=== PATIENT | female | born 1995 | race Caucasian/White ===

== ENCOUNTER 2021-05-26 12:28 | Inpatient (IN) | payer OTHER ==
[2021-05-26] MEDS ORDERED: IPRATROPIUM-ALBUTEROL 3 ML NEB INHALATION STA ×2 (12:40→13:03)
[2021-05-26] MEDS ORDERED: MAGNESIUM SULFATE-D5W PMX 2 GM in DEXTROSE/WATER 1 100ML.BAG IVPB STA (12:40)
[2021-05-26] MEDS ORDERED: methylPREDNISolone SOD SUCCI 125 MG/2 ML VIAL IV STA ×2 (12:40→15:51)
[2021-05-26] MEDS ORDERED: SODIUM CHLORIDE 0.9% 1,000 ML IV ONE (12:57)
[2021-05-26 12:58] LABS: Basophils # (A) 0.1 k/uL (0-0.2); Basophils % (A) 0 %; Eosinophils # (A) 0.7 k/uL (0-0.7); Eosinophils % (A) 5 %; HCT 46.4 % (34.0-46.0); HGB 15.3 gm/dL (11.4-16.0); Lymphocytes # (A) 1.7 k/uL (1.0-4.8); Lymphocytes % (A) 11 %; MCH 29.7 pg (25.0-35.0); Mean Platelet Volume 7.4; Monocytes # (A) 0.7 k/uL (0-1.0); Monocytes % (A) 5 %; Neutrophils # (A) 11.3 k/uL (1.3-7.7); Neutrophils % (A) 77 %; Platelet Count 232 k/uL (150-450); RBC 5.15 m/uL (3.80-5.40); RDW 14.1 % (11.5-15.5); WBC 14.6 k/uL (3.8-10.6)
[2021-05-26 13:08] LABS: ALT 11 U/L (4-34); AST 28 U/L (14-36); African American GFR (CKD) >90 (>60 ml/min/1.73 sqM); Albumin 4.7 g/dL (3.5-5.0); Alkaline Phosphatase 132 U/L (38-126); Anion Gap 12 mmol/L; Blood Urea Nitrogen 8 mg/dL (7-17); Calcium 9.4 mg/dL (8.4-10.2); Carbon Dioxide 22 mmol/L (22-30); Chloride 107 mmol/L (98-107); Glucose 107 mg/dL (74-99); Non-African American GFR(CKD) >90 (>60 ml/min/1.73 sqM); Sodium 141 mmol/L (137-145); Total Bilirubin 1.2 mg/dL (0.2-1.3); Total Protein 8.1 g/dL (6.3-8.2)
[2021-05-26 13:22] LABS: INR 1.1 (<1.2); Partial Thromboplastin Time 23.8 sec (22.0-30.0); Prothrombin Time 11.2 sec (9.0-12.0)
[2021-05-26] MEDS: LORazepam 2 MG/ML INJ IV STA ×2 (13:44→13:59)
--- NOTE | 2021-05-26 14:16 | XR ---
EXAMINATION TYPE: XR chest 1V portable DATE OF EXAM: 05/26/2021 COMPARISON: NONE HISTORY: dyspnea TECHNIQUE: Single frontal view of the chest is obtained. FINDINGS: There is no focal air space opacity, pleural effusion, or pneumothorax seen. The cardiac silhouette size is within normal limits. The osseous structures are intact. IMPRESSION: No acute process.
[2021-05-26 14:19] LABS: ABG Base Excess -3.8 mmol/L; ABG HCO3 21 mmol/L (21-25); ABG PCO2 34 mmHg (35-45); ABG PO2 85 mmHg (83-108); ABG TCO2 22 mmol/L (19-24); Allen Test Performed? Yes
[2021-05-26] MEDS: IPRATROPIUM-ALBUTEROL 3 ML NEB INHALATION SCH ×4 (14:43→23:48)
[2021-05-26] MEDS ORDERED: methylPREDNISolone SOD SUCCI 40 MG/ML 1 ML VIAL IV STA ×4 (15:04→15:18)
[2021-05-26] MEDS ORDERED: BUDESONIDE 1 MG/2 ML NEBU INHALATION STA (15:14)
[2021-05-26] MEDS ORDERED: FORMOTEROL FUMARATE 20 MCG/2 ML NEBU INHALATION ONE (15:19)
[2021-05-26] MEDS ORDERED: FORMOTEROL FUMARATE 20 MCG/2 ML NEBU INHALATION STA (15:20)
[2021-05-26] MEDS ORDERED: MONTELUKAST 10 MG TAB PO STA (15:50)
--- NOTE | 2021-05-26 16:50 | ED ---
General Adult HPI - General Chief complaint: Shortness of Breath Stated complaint: JADE Time Seen by Provider: 05/26/21 12:35 Source: patient, EMS, RN notes reviewed, old records reviewed Mode of arrival: EMS Limitations: no limitations - History of Present Illness Initial comments: Patient is a 26-year-old female with past medical history remarkable for asthma who presents emergency Department complaining of a one-day history of worsening shortness of breath. Patient states that she was seen recently at an outside hospital for a similar complaint. She was exposed to black mold in the believe that may have caused her asthma exacerbation. She is uncertain what caused her current asthma exacerbation. She endorses a bilateral chest tightness. She denies any history of blood clots in herself or family members. She denies any productive cough but does endorse a dry cough. She denies sore throat, fevers, chills. She denies any sick contacts. She is no abdominal complaints, including no nausea, vomiting. She attempted to use her home breathing treatments without much success. She is brought in today for difficulty in breathing. - Related Data Home Medications Medication Instructions Recorded Confirmed Budesonide/Formoterol Fumarate 2 puff INHALATION RT-BID 05/26/21 05/26/21 [Symbicort 160-4.5 Mcg Inhaler] Cetirizine HCl 10 mg PO DAILY 05/26/21 05/26/21 Montelukast [Singulair] 10 mg PO DAILY 05/26/21 05/26/21 Tiotropium [place] [Spiriva 2 puff INHALATION RT-BID 05/26/21 05/26/21 Respimat] Allergies Allergy/AdvReac Type Severity Reaction Status Date / Time Penicillins Allergy Swelling Verified 05/26/21 13:52 Review of Systems ROS Statement: Those systems with pertinent positive or pertinent negative responses have been documented in the HPI. Review of Systems: CONST: Denies fever EYES: Denies blurry vision ENT: Denies nasal congestion C/V: Denies Chest pain RESP: Endorses shortness of breath GI: Endorses chest pain : Denies dysuria SKIN: Denies rash. MSK: Denies joint pain. NEURO: Denies headache ROS Other: All systems not noted in ROS Statement are negative. Past Medical History Past Medical History: Asthma History of Any Multi-Drug Resistant Organisms: None Reported Past Surgical History: No Surgical Hx Reported Past Psychological History: No Psychological Hx Reported Smoking Status: Former smoker Past Alcohol Use History: None Reported Past Drug Use History: None Reported General Exam - General Exam Comments Initial Comments: General: Appears tachypneic In respiratory distress. HEAD: Normal with no signs of head trauma. EYES: PERRLA, EOMI, conjunctiva normal, no discharge. ENT: Hearing grossly intact, normal oropharynx. RESPIRATORY: Reduced breath sounds bilaterally with end expiratory wheezing. No obvious rhonchi patient. Patient is tachypneic with subcostal retractions. C/V: Patient's tachycardic with a regular rhythm. S1 and S2 auscultated. No peripheral edema. Peripheral pulses are equal throughout. ABD: Abd is soft, nontender, nondistended EXT: Normal range of motion, no obvious deformity SKIN: No rashes or lesions observed on exposed skin. NEURO: Alert and oriented 4. Limitations: no limitations Course Vital Signs 05/26/21 05/26/21 05/26/21 12:29 12:46 12:54 Temperature 100.5 F H Pulse Rate 140 H 121 H 124 H Respiratory 30 H Rate Blood Pressure 147/87 O2 Sat by Pulse 89 L Oximetry 05/26/21 05/26/21 05/26/21 13:22 13:32 13:35 Temperature Pulse Rate 115 H Respiratory 22 32 H Rate Blood Pressure 142/65 O2 Sat by Pulse 88 L 95 Oximetry 05/26/21 05/26/21 05/26/21 13:37 13:50 13:55 Temperature Pulse Rate 114 H 128 H 128 H Respiratory 53 H Rate Blood Pressure 141/93 O2 Sat by Pulse 97 Oximetry 05/26/21 05/26/21 05/26/21 14:05 14:21 14:34 Temperature Pulse Rate 123 H 122 H 114 H Respiratory 50 H 61 H 45 H Rate Blood Pressure 151/89 161/97 139/96 O2 Sat by Pulse 95 96 95 Oximetry 05/26/21 05/26/21 05/26/21 14:45 14:59 15:00 Temperature Pulse Rate 118 H 126 H Respiratory Rate Blood Pressure O2 Sat by Pulse 91 L Oximetry 05/26/21 05/26/21 05/26/21 15:01 15:10 15:28 Temperature Pulse Rate 129 H 129 H 123 H Respiratory 46 H 45 H Rate Blood Pressure 144/84 O2 Sat by Pulse 90 L 94 L Oximetry 05/26/21 05/26/21 05/26/21 15:39 15:41 15:51 Temperature 98.5 F Pulse Rate 122 H 122 H Respiratory Rate Blood Pressure O2 Sat by Pulse Oximetry 05/26/21 16:53 Temperature 98.9 F Pulse Rate 122 H Respiratory 40 H Rate Blood Pressure 144/86 O2 Sat by Pulse 96 Oximetry Medical Decision Making - Medical Decision Making Based on the patient's presentation and physical exam, I'm concerned for acute asthma exacerbation but cannot rule out cardiac with possibility of pulmonary embolus minutes time either. She does not PERC out, well score for pulmonary embolism is low. Therefore we will obtain a cardiac workup including troponin, d-dimer, EKG, chest x-ray. Patient will be administered a total bili of 40 mg of IV Solu-Medrol in addition to multiple breathing treatments and 2 g magnesium for asthma exacerbation. Patient was initially closely monitored, and then switched to BiPAP as she became more tachypneic. She was in agreement this plan. Patiently connected to continuous cardiac monitoring while she is in the department. She also be connected to continuous pulse oximetry. EKG was significant for sinus tachycardia. Chest x-ray showed no signs of acute infectious process. There is no acute cardiopulmonary process on chest x-ray. Laboratory studies are remarkable for mildly elevated leukocytosis of 14.6 which is likely reactive. Patient's troponin is negative. Patient's d-dimer is within normal limits. COVID-19 swab is negative. On reevaluation, patient is on BiPAP. I will obtain an ABG at this time. ABG was remarkable for showing a normal pH with a mildly decreased CO2 with hypoxia with PaO2 of 85. This does fit her asthma. She is not retaining CO2 at this time. Patient became uncomfortable on BiPAP and therefore was switched hyponasal cannula after discussion with pulmonology. I consulted pulmonology, Dr. agudelo, who agreed to evaluate the patient. I spoke with the patient regarding her admission and she was in agreement this plan. Patient will be admitted in serious condition on hyponasal cannula for asthma exacerbation. Breath sounds are improved bilaterally and patient has louder wheezing with breath sounds in all lung gonzalez. This is an improvement from her initial exam. Vital signs are also improved at this time. This includes improvement in her tachycardia. I spoke with the attending physician, Dr. Stewart of [facility] who was in agreement with the plan and accepted the admission. - Lab Data Result diagrams: 05/26/21 12:43 05/26/21 12:43 Lab Results 05/26/21 05/26/21 05/26/21 Range/Units 12:43 12:43 12:43 WBC 14.6 H (3.8-10.6) k/uL RBC 5.15 (3.80-5.40) m/uL Hgb 15.3 (11.4-16.0) gm/dL Hct 46.4 H (34.0-46.0) % MCV 90.0 (80.0-100.0) fL MCH 29.7 (25.0-35.0) pg MCHC 33.0 (31.0-37.0) g/dL RDW 14.1 (11.5-15.5) % Plt Count 232 (150-450) k/uL MPV 7.4 Neutrophils % 77 % Lymphocytes % 11 % Monocytes % 5 % Eosinophils % 5 % Basophils % 0 % Neutrophils # 11.3 H (1.3-7.7) k/uL Lymphocytes # 1.7 (1.0-4.8) k/uL Monocytes # 0.7 (0-1.0) k/uL Eosinophils # 0.7 (0-0.7) k/uL Basophils # 0.1 (0-0.2) k/uL PT 11.2 (9.0-12.0) sec INR 1.1 (<1.2) APTT 23.8 (22.0-30.0) sec D-Dimer 0.39 (<0.60) mg/L FEU Sample Site ABG pH (7.35-7.45) ABG pCO2 (35-45) mmHg ABG pO2 (83-108) mmHg ABG HCO3 (21-25) mmol/L ABG Total CO2 (19-24) mmol/L ABG O2 Saturation (94-97) % ABG Base Excess mmol/L Mahesh Test FiO2 % Sodium 141 (137-145) mmol/L Potassium 4.0 (3.5-5.1) mmol/L Chloride 107 (98-107) mmol/L Carbon Dioxide 22 (22-30) mmol/L Anion Gap 12 mmol/L BUN 8 (7-17) mg/dL Creatinine 0.67 (0.52-1.04) mg/dL Est GFR (CKD-EPI)AfAm >90 (>60 ml/min/1.73 sqM) Est GFR (CKD-EPI)NonAf >90 (>60 ml/min/1.73 sqM) Glucose 107 H (74-99) mg/dL Plasma Lactic Acid Nando (0.7-2.0) mmol/L Calcium 9.4 (8.4-10.2) mg/dL Magnesium 2.0 (1.6-2.3) mg/dL Total Bilirubin 1.2 (0.2-1.3) mg/dL AST 28 (14-36) U/L ALT 11 (4-34) U/L Alkaline Phosphatase 132 H (38-126) U/L Troponin I (0.000-0.034) ng/mL Total Protein 8.1 (6.3-8.2) g/dL Albumin 4.7 (3.5-5.0) g/dL HCG, Qual Coronavirus (PCR) (Not Detectd) 05/26/21 05/26/21 05/26/21 Range/Units 12:43 12:43 12:44 WBC (3.8-10.6) k/uL RBC (3.80-5.40) m/uL Hgb (11.4-16.0) gm/dL Hct (34.0-46.0) % MCV (80.0-100.0) fL MCH (25.0-35.0) pg MCHC (31.0-37.0) g/dL RDW (11.5-15.5) % Plt Count (150-450) k/uL MPV Neutrophils % % Lymphocytes % % Monocytes % % Eosinophils % % Basophils % % Neutrophils # (1.3-7.7) k/uL Lymphocytes # (1.0-4.8) k/uL Monocytes # (0-1.0) k/uL Eosinophils # (0-0.7) k/uL Basophils # (0-0.2) k/uL PT (9.0-12.0) sec INR (<1.2) APTT (22.0-30.0) sec D-Dimer (<0.60) mg/L FEU Sample Site ABG pH (7.35-7.45) ABG pCO2 (35-45) mmHg ABG pO2 (83-108) mmHg ABG HCO3 (21-25) mmol/L ABG Total CO2 (19-24) mmol/L ABG O2 Saturation (94-97) % ABG Base Excess mmol/L Mahesh Test FiO2 % Sodium (137-145) mmol/L Potassium (3.5-5.1) mmol/L Chloride (98-107) mmol/L Carbon Dioxide (22-30) mmol/L Anion Gap mmol/L BUN (7-17) mg/dL Creatinine (0.52-1.04) mg/dL Est GFR (CKD-EPI)AfAm (>60 ml/min/1.73 sqM) Est GFR (CKD-EPI)NonAf (>60 ml/min/1.73 sqM) Glucose (74-99) mg/dL Plasma Lactic Acid Nando 1.3 (0.7-2.0) mmol/L Calcium (8.4-10.2) mg/dL Magnesium (1.6-2.3) mg/dL Total Bilirubin (0.2-1.3) mg/dL AST (14-36) U/L ALT (4-34) U/L Alkaline Phosphatase (38-126) U/L Troponin I <0.012 (0.000-0.034) ng/mL Total Protein (6.3-8.2) g/dL Albumin (3.5-5.0) g/dL HCG, Qual Not Detected Coronavirus (PCR) (Not Detectd) 05/26/21 05/26/21 Range/Units 13:19 14:17 WBC (3.8-10.6) k/uL RBC (3.80-5.40) m/uL Hgb (11.4-16.0) gm/dL Hct (34.0-46.0) % MCV (80.0-100.0) fL MCH (25.0-35.0) pg MCHC (31.0-37.0) g/dL RDW (11.5-15.5) % Plt Count (150-450) k/uL MPV Neutrophils % % Lymphocytes % % Monocytes % % Eosinophils % % Basophils % % Neutrophils # (1.3-7.7) k/uL Lymphocytes # (1.0-4.8) k/uL Monocytes # (0-1.0) k/uL Eosinophils # (0-0.7) k/uL Basophils # (0-0.2) k/uL PT (9.0-12.0) sec INR (<1.2) APTT (22.0-30.0) sec D-Dimer (<0.60) mg/L FEU Sample Site rbrac ABG pH 7.40 (7.35-7.45) ABG pCO2 34 L (35-45) mmHg ABG pO2 85 (83-108) mmHg ABG HCO3 21 (21-25) mmol/L ABG Total CO2 22 (19-24) mmol/L ABG O2 Saturation 97.0 (94-97) % ABG Base Excess -3.8 mmol/L Mahesh Test Yes FiO2 50 % Sodium (137-145) mmol/L Potassium (3.5-5.1) mmol/L Chloride (98-107) mmol/L Carbon Dioxide (22-30) mmol/L Anion Gap mmol/L BUN (7-17) mg/dL Creatinine (0.52-1.04) mg/dL Est GFR (CKD-EPI)AfAm (>60 ml/min/1.73 sqM) Est GFR (CKD-EPI)NonAf (>60 ml/min/1.73 sqM) Glucose (74-99) mg/dL Plasma Lactic Acid Nando (0.7-2.0) mmol/L Calcium (8.4-10.2) mg/dL Magnesium (1.6-2.3) mg/dL Total Bilirubin (0.2-1.3) mg/dL AST (14-36) U/L ALT (4-34) U/L Alkaline Phosphatase (38-126) U/L Troponin I (0.000-0.034) ng/mL Total Protein (6.3-8.2) g/dL Albumin (3.5-5.0) g/dL HCG, Qual Coronavirus (PCR) Not Detected (Not Detectd) - EKG Data -: EKG Interpreted by Me EKG Comments: 12-lead Electrocardiogram Interpretation Note EKG was reviewed and interpreted by myself. 12-lead ECG performed at 1332 is interpreted by me as revealing sinus tachycardia at a rate of 116 beats per minute. [place] is normal. TN intervals 152 ms, QRS duration is 90 ms, QTc is 450 ms.. There is an isolated T-wave inversion in lead III.. R wave progression across the precordium was satisfactory. By my interpretation this EKG is non- diagnostic for acute ischemia. Disposition Clinical Impression: Sinus tachycardia, Asthma exacerbation Narrative: hypoxic respiratory failure requiring supplemental oxygenation. Blood gas interpretation. Disposition: ADMITTED IP TO THIS HOSP Condition: Serious Referrals: None,Stated [Primary Care Provider] - 1-2 days
--- NOTE | 2021-05-26 18:46 | CONS ---
CONSULTATION PULMONARY/CRITICAL CARE CONSULTATION: This patient was seen in the emergency room, room #4. REASON FOR CONSULTATION: Severe asthma. This is a 26-year-old female with a history of chronic bronchial asthma. She has had asthma for a number of years. She does not actually see a lung doctor. She does not know the name of her primary care physician. Anyway, she came into the emergency room complaining of shortness of breath, chest tightness, wheezing and cough. She has typical asthma symptoms. It has been going on for a couple of days. She believes the weather change maybe caused her asthma to be more active. Anyway, she was seen in the emergency room. I was called by the ER physician, Dr. Llanos. The patient is currently on 15 L high flow nasal cannula. She is not receiving any IV fluids. She has currently received some updrafts with DuoNeb, she received some IV magnesium, and also she received 40 mg of Solu-Medrol and after that another 40 mg of Solu-Medrol. Her chest x-ray shows no acute process. She denies any other major medical problems. She has allergies to penicillin. Her home medications apparently include Symbicort, Zyrtec, Singulair and Spiriva. I suspect she probably has a rescue inhaler as well. Again, she was not a particularly good historian. Not remembering her medications or her doctor's name. Current labs include a white count 14.6, hemoglobin 15.3, hematocrit 46.4, and a platelet count of 332,000. PT/INR, PTT and D-dimer all normal. A blood gas showed a pO2 of 85, pCO2 of 34, and pH of 7.4. That was on 50%. Sodium, potassium, chloride and CO2 all normal. Anion gap normal. BUN and creatinine were normal. The rest of her labs look okay. Coronavirus testing was negative. HCG was negative. REVIEW OF SYSTEMS: CONSTITUTIONAL: Negative. NEUROLOGIC: Negative. HEENT: Negative. CARDIOVASCULAR: Negative. PULMONARY: Shortness of breath, chest tightness, wheezing cough for about 3 or 4 days. GI: Negative. : Negative. RHEUMATOLOGIC: Negative. IMMUNOLOGIC: Negative. ENDOCRINOLOGIC: Negative. DERMATOLOGIC: Negative. PHYSICAL EXAMINATION: Vital signs are reviewed. Temperature is 98.5, heart rate about 120, respiratory rate is in the high 20s to low 30s, and saturations on the 15 L high flow cannula is 94-95%. She appears to be in [id number] respiratory distress. No audible wheezing. No conversational dyspnea. No use of accessory muscles. HEENT examination is grossly unremarkable. NECK: Supple, full range of motion. No adenopathy. Neck veins are flat. CARDIOVASCULAR: Examination reveals tachycardia. Heart rate about 120 beats per minute. S1, S2 normal. LUNGS: Some expiratory wheezes. There is prolongation on forced maneuver. No crackles. Breath sounds are equal bilaterally. Adventitious lung sounds are more prominent on forced maneuver. ABDOMEN: Obese but bowel sounds are heard. EXTREMITIES are intact. No cyanosis, clubbing, or edema. SKIN: Without rash. NEUROLOGIC examination is brief but nonfocal. Laboratory data has been reviewed. Chest x-ray shows no acute process. MEDICATIONS: Currently have included updrafts with albuterol and Atrovent, we did recommend an updraft with formoterol 20 mcg and Pulmicort 1 mg to be administered twice a day and she has received a total of 80 mg of Solu-Medrol with another 20 mg to be given. I n addition, the patient did receive some Ativan and some magnesium. ASSESSMENT: Severe asthma exacerbation without obvious infection. PLAN: The patient will be placed on DuoNeb q.i.d. and p.r.n. In addition, we will give her Solu-Medrol 60 mg q.6 hours. We also will add Singulair 10 mg at bedtime and also Pulmicort and formoterol twice a day. I do not believe there is a need for antibiotic at this time. Additional recommendations and suggestions are forthcoming. Prognosis is guarded. We will continue to follow and make recommendations where appropriate. MMODL / IJN: [id number] /
[2021-05-26] MEDS ORDERED: ACETAMINOPHEN TAB 325 MG TAB PO PRN (19:53)
[2021-05-26] MEDS: FORMOTEROL FUMARATE 20 MCG/2 ML NEBU INHALATION SCH (20:24)
[2021-05-26] MEDS: BUDESONIDE 1 MG/2 ML NEBU INHALATION SCH (20:24)
[2021-05-26] MEDS: MELATONIN 3 MG TABLET PO SCH (21:52)
[2021-05-27] MEDS: IPRATROPIUM-ALBUTEROL 3 ML NEB INHALATION SCH ×5 (03:52→22:16)
[2021-05-27] MEDS: BUDESONIDE 1 MG/2 ML NEBU INHALATION SCH ×2 (08:34→16:21)
[2021-05-27] MEDS: FORMOTEROL FUMARATE 20 MCG/2 ML NEBU INHALATION SCH ×2 (08:34→16:21)
[2021-05-27] MEDS: methylPREDNISolone SOD SUCCI 40 MG/ML 1 ML VIAL IV SCH ×2 (11:02→11:12)
[2021-05-27] MEDS: DOXYCYCLINE 100 MG CAP PO SCH ×2 (11:03→20:27)
[2021-05-27] MEDS: NYSTATIN 100,000 UNIT/ML SUSP 500,000 UNIT/5 ML CUP PO SCH ×3 (11:13→20:27)
[2021-05-27] MEDS: methylPREDNISolone SOD SUCCI 125 MG/2 ML VIAL IV SCH ×2 (11:13→17:05)
--- NOTE | 2021-05-27 11:45 | P.HPIM ---
History of Present Illness 26-year-old female came in with compensative worsening shortness of breath or found to be in asthma exacerbation. Patient does have history of asthma patient was admitted about a month ago for 5 days and was told she has black mold in the lungs with. Patient was complaining of cough with greenish sputum production. Patient was also comparing of bilateral chest tightness. Patient denied nausea vomiting denied any fever chills chest x-ray did not show any pneumonia. Denied any smoking history. Patient doesn't have any peripheral eosinophilia. She was requiring 15 L of oxygen presently on 8 L of oxygen. REVIEW OF SYSTEMS: CONSTITUTIONAL: No fever, no malaise, no fatigue. HEENT: No recent visual problems or hearing problems. Denied any sore throat. CARDIOVASCULAR: No chest pain, orthopnea, PND, no palpitations, no syncope. PULMONARY: As mentioned in HPI. GASTROINTESTINAL: No diarrhea, no nausea, no vomiting, no abdominal pain. NEUROLOGICAL: No headaches, no weakness, no numbness. HEMATOLOGICAL: Denies any bleeding or petechiae. GENITOURINARY: Denies any burning micturition, frequency, or urgency. MUSCULOSKELETAL/RHEUMATOLOGICAL: Denies any joint pain, swelling, or any muscle pain. ENDOCRINE: Denies any polyuria or polydipsia. The rest of the 14-point review of systems is negative. PHYSICAL EXAMINATION: GENERAL: The patient is alert and oriented x3, not in any acute distress. Well developed, well nourished. HEENT: Pupils are round and equally reacting to light. EOMI. No scleral icterus. No conjunctival pallor. Normocephalic, atraumatic. No pharyngeal erythema. No thyromegaly. CARDIOVASCULAR: S1 and S2 present. No murmurs, rubs, or gallops. PULMONARY: Significant expiratory wheezing on exam decreased air entry into bilateral lung goznalez. ABDOMEN: Soft, nontender, nondistended, normoactive bowel sounds. No palpable organomegaly. MUSCULOSKELETAL: No joint swelling or deformity. EXTREMITIES: No cyanosis, clubbing, or pedal edema. NEUROLOGICAL: Gross neurological examination did not reveal any focal deficits. SKIN: No rashes. Assessment and plan 1 acute asthma exacerbation patient appears to have severe persistent asthma. Patient will be continue on systemic steroids and inhalational treatments. Usually asthmatic will not require any antibiotics but the patient is comparing of the greenish sputum production consistent with bacterial bronchitis because of which patient will be started on doxycycline. -Acute hypoxic respiratory failure due to assessment #1 -leukocytosis secondary to systemic steroids DVT prophylaxis: Lovenox Past Medical History Past Medical History: Asthma History of Any Multi-Drug Resistant Organisms: None Reported Past Surgical History: No Surgical Hx Reported Past Psychological History: Depression Smoking Status: Never smoker Past Alcohol Use History: None Reported Past Drug Use History: None Reported - Past Family History Father Family Medical History: Asthma, Myocardial Infarction (CT) Mother Additional Family Medical History / Comment(s): depression Medications and Allergies Home Medications Medication Instructions Recorded Confirmed Type Budesonide/Formoterol Fumarate 2 puff INHALATION RT-BID 05/26/21 05/26/21 History [Symbicort 160-4.5 Mcg Inhaler] Cetirizine HCl 10 mg PO DAILY 05/26/21 05/26/21 History Montelukast [Singulair] 10 mg PO DAILY 05/26/21 05/26/21 History Tiotropium [place] [Spiriva 2 puff INHALATION RT-BID 05/26/21 05/26/21 History Respimat] Allergies Allergy/AdvReac Type Severity Reaction Status Date / Time Penicillins Allergy Swelling Verified 05/26/21 13:52 Physical Exam Vitals: Vital Signs Temp Pulse Pulse Resp BP BP Pulse Ox 05/27/21 09:08 108 H 05/27/21 08:56 110 H 05/27/21 08:55 110 H 05/27/21 08:38 106 H 92 L 05/27/21 08:11 98.4 F 102 H 18 155/79 05/27/21 04:02 120 H 05/27/21 03:53 113 H 05/27/21 00:43 98.1 F 108 H 19 111/73 91 L 05/27/21 00:02 117 H 05/26/21 23:50 101 H 05/26/21 20:49 120 H 05/26/21 20:34 120 H 05/26/21 20:24 120 H 05/26/21 18:51 98.5 F 120 H 21 118/75 94 L 05/26/21 16:53 98.9 F 122 H 40 H 144/86 96 05/26/21 15:51 122 H 05/26/21 15:41 98.5 F 05/26/21 15:39 122 H 05/26/21 15:28 123 H 05/26/21 15:10 129 H 45 H 94 L 05/26/21 15:01 129 H 46 H 144/84 90 L 05/26/21 15:00 91 L 05/26/21 14:59 126 H 05/26/21 14:45 118 H 05/26/21 14:34 114 H 45 H 139/96 95 05/26/21 14:21 122 H 61 H 161/97 96 05/26/21 14:05 123 H 50 H 151/89 95 05/26/21 13:55 128 H 53 H 141/93 97 05/26/21 13:50 128 H 05/26/21 13:37 114 H 05/26/21 13:35 115 H 32 H 142/65 95 05/26/21 13:32 88 L 05/26/21 13:22 22 05/26/21 12:54 124 H 05/26/21 12:46 121 H 05/26/21 12:29 100.5 F H 140 H 30 H 147/87 89 L Intake and Output 05/26/21 05/27/21 05/27/21 22:59 06:59 14:59 Other: Voiding Method Bedside Commode # Voids 1 3 # Bowel Movements 1 Weight 99.79 kg Results CBC & Chem 7: 05/26/21 12:43 05/26/21 12:43 Labs: Abnormal Lab Results - Last 24 Hours (Table) 05/26/21 05/26/21 05/26/21 Range/Units 12:43 12:43 14:17 WBC 14.6 H (3.8-10.6) k/uL Hct 46.4 H (34.0-46.0) % Neutrophils # 11.3 H (1.3-7.7) k/uL ABG pCO2 34 L (35-45) mmHg Glucose 107 H (74-99) mg/dL Alkaline Phosphatase 132 H (38-126) U/L Thrombosis Risk Factor Assmnt - Choose All That Apply Any of the Below Risk Factors Present?: Yes Each Factor Represents 1 point: Obesity (BMI >25) Other Risk Factors: No Other congenital or acquired thrombophilia - If yes, enter type in comment: No Thrombosis Risk Factor Assessment Total Risk Factor Score: 1 Thrombosis Risk Factor Assessment Level: Low Risk
--- NOTE | 2021-05-27 12:56 | P.PN ---
Subjective Progress Note Date: 05/27/21 Principal diagnosis: Asthma exacerbation. Progress note dated 05/27/2021. 26-year-old female, with a history of chronic bronchial asthma. We saw her in the emergency room yesterday. Her asthma was quite severe yesterday but she's doing much better today. She feels much better. She's less bronchospastic and short of breath. Her cough is better control. She still wheezing. She was placed on all the usual medications. Currently, she is on a couple liters. Her saturations are excellent. Her heart rate is about 100 bpm. Her chest x-ray was normal. There are no new labs for today. Blood gases yesterday showed a pO2 of 85, pCO2 34, and a pH is 7.4. Objective - Vital Signs Vital signs: Vital Signs Temp 98.4 F 05/27/21 08:11 Pulse 110 H 05/27/21 12:24 Resp 18 05/27/21 08:11 BP 155/79 05/27/21 08:11 Pulse Ox 92 L 05/27/21 08:38 Intake & Output 05/26/21 05/27/21 05/27/21 18:59 06:59 18:59 Weight 99.79 kg Other: Voiding Method Bedside Commode # Voids 1 3 # Bowel Movements 1 - Exam No acute distress, oriented 3. No audible wheezing, use of accessory muscles, or conversational dyspnea. The patient appears much more stable than yesterday. HEENT examination is grossly unremarkable. Neck supple. Full range of motion. No adenopathy thyromegaly or neck vein distention. Cardiovascular examination reveals regular rhythm rate. S1-S2 normal. No S3 or S4. No discernible murmur noted. Heart sounds are distant. Heart rate 100 bpm. Lungs reveal mild expiratory wheezes. Breath sounds equal bilaterally. No rhonchi. No crackles. There is prolongation on forced maneuver. Exam today is much improved compared to yesterday. Abdomen soft bowel sounds are heard. No masses or tenderness. Extremities are intact. No cyanosis clubbing or edema. Skin is without rash or lesion. Neurologic examination is brief but nonfocal. - Labs CBC & Chem 7: 05/26/21 12:43 05/26/21 12:43 Labs: Abnormal Lab Results - Last 24 Hours (Table) 05/26/21 05/26/2121 Range/Units 12:43 12:43 14:17 WBC 14.6 H (3.8-10.6) k/uL Hct 46.4 H (34.0-46.0) % Neutrophils # 11.3 H (1.3-7.7) k/uL ABG pCO2 34 L (35-45) mmHg Glucose 107 H (74-99) mg/dL Alkaline Phosphatase 132 H (38-126) U/L Assessment and Plan Assessment: Severe asthma exacerbation, without obvious infection. Plan: Plan dated 05/27/2021. The patient will continue on all the usual medications including albuterol sulfate, ipratropium bromide, Pulmicort 1 mg, formoterol 20 g, Solu-Medrol 60 mg every 6 hours, and Singulair 10 mg at bedtime. Additional recommendations and suggestions are forthcoming. Prognosis is guarded. We will continue to follow the patient and make recommendations were appropriate. Time with Patient: Less than 30
[2021-05-27] MEDS: MELATONIN 3 MG TABLET PO SCH (20:27)
[2021-05-28] MEDS: methylPREDNISolone SOD SUCCI 125 MG/2 ML VIAL IV SCH ×5 (00:57→23:24)
[2021-05-28] MEDS: NYSTATIN 100,000 UNIT/ML SUSP 500,000 UNIT/5 ML CUP PO SCH ×4 (07:31→20:10)
[2021-05-28] MEDS: DOXYCYCLINE 100 MG CAP PO SCH ×2 (07:31→20:10)
[2021-05-28] MEDS: ENOXAPARIN 40 MG/0.4 ML SYRINGE SQ SCH (07:31)
[2021-05-28] MEDS: FORMOTEROL FUMARATE 20 MCG/2 ML NEBU INHALATION SCH ×2 (07:41→19:30)
[2021-05-28] MEDS: IPRATROPIUM-ALBUTEROL 3 ML NEB INHALATION SCH ×4 (07:42→19:17)
[2021-05-28] MEDS: BUDESONIDE 1 MG/2 ML NEBU INHALATION SCH ×2 (07:42→19:17)
--- NOTE | 2021-05-28 08:50 | P.PN ---
Subjective Progress Note Date: 05/28/21 26-year-old female came in with compensative worsening shortness of breath or found to be in asthma exacerbation. Patient does have history of asthma patient was admitted about a month ago for 5 days and was told she has black mold in the lungs with. Patient was complaining of cough with greenish sputum production. Patient was also comparing of bilateral chest tightness. Patient denied nausea vomiting denied any fever chills chest x-ray did not show any pneumonia. Denied any smoking history. Patient doesn't have any peripheral eosinophilia. She was requiring 15 L of oxygen presently on 8 L of oxygen. 05/28/2021 Patient seen on follow-up, she still has bilateral wheezing on exam, requiring 7 L high flow nasal cannula short of breath with exertion. Having some pleuritic chest discomfort. She is continued on IV Solu-Medrol 60 every 6 hours, antimicrobial therapy with doxycycline along with nebulized bronchodilators and Pulmicort. No fevers, hemodynamically stable. Patient had declined the Covid vaccine yesterday, she was educated on her increased risk of respiratory failure if if she was in fact to become infected, and was counseled to take the vaccine. Patient verbalized understanding and was agreeable. REVIEW OF SYSTEMS: CONSTITUTIONAL: No fever, no malaise, no fatigue. CARDIOVASCULAR: No chest pain, orthopnea, PND, no palpitations, no syncope. PULMONARY: Short of breath, wheezing GASTROINTESTINAL: No diarrhea, no nausea, no vomiting, no abdominal pain. NEUROLOGICAL: No headaches, no weakness, no numbness. GENITOURINARY: Denies any burning micturition, frequency, or urgency. The rest of the 14-point review of systems is negative. PHYSICAL EXAMINATION: GENERAL: The patient is alert and oriented x3, not in any acute distress. Well developed, well nourished. HEENT: Pupils are round and equally reacting to light. EOMI. No scleral icterus. No conjunctival pallor. Normocephalic, atraumatic. No pharyngeal erythema. No thyromegaly. CARDIOVASCULAR: S1 and S2 present. No murmurs, rubs, or gallops. PULMONARY: Bilateral expiratory wheeze to auscultation bilaterally, diminished air entry to bases. ABDOMEN: Soft, nontender, nondistended, normoactive bowel sounds. No palpable organomegaly. MUSCULOSKELETAL: No joint swelling or deformity. EXTREMITIES: No cyanosis, clubbing, or pedal edema. NEUROLOGICAL: Gross neurological examination did not reveal any focal deficits. SKIN: No rashes. Assessment and plan 1 acute asthma exacerbation patient appears to have severe persistent asthma. Patient will be continue on systemic steroids with IV Solu-Medrol 60 every 6 hours, DuoNeb's and Pulmicort. Usually asthmatic will not require any antibiotics but the patient is comparing of the greenish sputum production consistent with bacterial bronchitis because of which patient will be started on doxycycline. On 7 L nasal cannula, titrate down FiO2 as tolerates. -Possible acute tracheobronchitis -Acute hypoxic respiratory failure due to assessment #1 -leukocytosis secondary to systemic steroids DVT prophylaxis: Lovenox Objective - Vital Signs Vital signs: Vital Signs Temp 97.8 F 05/28/21 01:55 Pulse 86 05/28/21 08:03 Resp 17 05/28/21 01:55 BP 134/73 05/28/21 01:55 Pulse Ox 93 L 05/28/21 07:42 Intake & Output 05/27/21 05/28/21 05/28/21 18:59 06:59 18:59 Other: # Voids 3 3 # Bowel Movements 1 - Labs CBC & Chem 7: 05/26/21 12:43 05/26/21 12:43 Labs: Microbiology - Last 24 Hours (Table) 05/26/21 12:44 Blood Culture - Preliminary Blood No Growth after 24 hours
--- NOTE | 2021-05-28 11:33 | P.PN ---
Subjective Progress Note Date: 05/28/21 Principal diagnosis: Asthma exacerbation. Progress note dated 05/27/2021. 26-year-old female, with a history of chronic bronchial asthma. We saw her in the emergency room yesterday. Her asthma was quite severe yesterday but she's doing much better today. She feels much better. She's less bronchospastic and short of breath. Her cough is better control. She still wheezing. She was placed on all the usual medications. Currently, she is on a couple liters. Her saturations are excellent. Her heart rate is about 100 bpm. Her chest x-ray was normal. There are no new labs for today. Blood gases yesterday showed a pO2 of 85, pCO2 34, and a pH is 7.4. Progress note dated 05/28/2021. 26-year-old female with history of severe chronic bronchial asthma exacerbation. We saw her initially in the emergency department, a couple days ago. She is improved today. She is not ready for discharge. She still quite bronchospastic and short of breath. She is coughing a bit but not producing any phlegm. No fever or chills or chest pain. She was sleeping when I entered the room. No new labs or x-rays today. Objective - Vital Signs Vital signs: Vital Signs Temp 98.4 F 05/28/21 08:00 Pulse 86 05/28/21 08:03 Resp 22 05/28/21 08:00 BP 133/88 05/28/21 08:00 Pulse Ox 94 L 05/28/21 08:00 Intake & Output 05/27/21 05/28/21 05/28/21 18:59 06:59 18:59 Other: # Voids 3 3 2 # Bowel Movements 1 - Exam No acute distress, oriented 3. No audible wheezing, use of accessory muscles, or conversational dyspnea. The patient appears much more stable than yesterday. HEENT examination is grossly unremarkable. Neck supple. Full range of motion. No adenopathy thyromegaly or neck vein distention. Cardiovascular examination reveals regular rhythm rate. S1-S2 normal. No S3 or S4. No discernible murmur noted. Heart sounds are distant. Heart rate 86 bpm. Lungs reveal mild expiratory wheezes. Breath sounds equal bilaterally. No rhonchi. No crackles. There is prolongation on forced maneuver. Exam today is much improved compared to yesterday. Abdomen soft bowel sounds are heard. No masses or tenderness. Extremities are intact. No cyanosis clubbing or edema. Skin is without rash or lesion. Neurologic examination is brief but nonfocal. - Labs CBC & Chem 7: 05/26/21 12:43 05/26/21 12:43 Labs: Microbiology - Last 24 Hours (Table) 05/26/21 12:44 Blood Culture - Preliminary Blood No Growth after 24 hours Assessment and Plan Assessment: Severe asthma exacerbation, without obvious infection. Plan: Plan dated 05/27/2021. The patient will continue on all the usual medications including albuterol sulfate, ipratropium bromide, Pulmicort 1 mg, formoterol 20 g, Solu-Medrol 60 mg every 6 hours, and Singulair 10 mg at bedtime. Additional recommendations and suggestions are forthcoming. Prognosis is guarded. We will continue to follow the patient and make recommendations were appropriate. Plan dated 05/28/2021. The patient appears to be improving. She remains on Pulmicort, 1 mg, doxycycline 100 mg twice a day, and formoterol, 20 g twice a day. She also is on Robitussin-DM, doing nebs, and Solu-Medrol. I suspect, the patient will be ready for discharge in 24-48 hours. Additional recommendations and suggestions are forthcoming. Prognosis is guarded. Time with Patient: Less than 30
[2021-05-28] MEDS: guaiFENesin-DM 100-10MG/5ML 10 ML CUP PO PRN ×2 (12:16→20:10)
[2021-05-28] MEDS: MELATONIN 3 MG TABLET PO SCH (20:10)
[2021-05-29] MEDS: methylPREDNISolone SOD SUCCI 125 MG/2 ML VIAL IV SCH ×4 (05:31→23:50)
[2021-05-29] MEDS: guaiFENesin-DM 100-10MG/5ML 10 ML CUP PO PRN (05:32)
[2021-05-29] MEDS: NYSTATIN 100,000 UNIT/ML SUSP 500,000 UNIT/5 ML CUP PO SCH ×4 (07:04→21:49)
[2021-05-29] MEDS: DOXYCYCLINE 100 MG CAP PO SCH ×2 (07:04→21:49)
[2021-05-29] MEDS: ENOXAPARIN 40 MG/0.4 ML SYRINGE SQ SCH (07:05)
[2021-05-29] MEDS: FORMOTEROL FUMARATE 20 MCG/2 ML NEBU INHALATION SCH ×2 (08:06→20:52)
[2021-05-29] MEDS: BUDESONIDE 1 MG/2 ML NEBU INHALATION SCH ×2 (08:06→20:52)
[2021-05-29] MEDS: IPRATROPIUM-ALBUTEROL 3 ML NEB INHALATION SCH ×4 (08:06→20:52)
--- NOTE | 2021-05-29 12:57 | CT ---
EXAMINATION TYPE: CT chest wo con DATE OF EXAM: 05/29/2021 COMPARISON: None HISTORY: Dyspnea. History of asthma with black mold found in lungs. CT DLP: [address] of the chest was performed with lung and mediastinal window settings submitted. The la ck of contrast limits evaluation of the vascular, mediastinal and parenchymal structures including th e upper abdomen. LUNGS: Nonspecific groundglass infiltrate identified throughout both lung gonzalez. No evidence for air space consolidation. No atelectasis. No pulmonary nodule or mass is detected. No pleural effusion. No CT evidence of interstitial lung disease. MEDIASTINUM/FRANCIA: Thoracic aorta is of normal caliber with limited evaluation given lack of contrast . The heart is not enlarged. No evidence for mediastinal mass. No lymph nodes greater than 1cm. UPPER ABDOMEN: No significant abnormality is seen. OTHER: No significant other abnormality. IMPRESSION: 1. Nonspecific groundglass infiltrate identified throughout both lung gonzalez. Correlate with acute i nflammatory process.
--- NOTE | 2021-05-29 14:49 | P.PN ---
Subjective Progress Note Date: 05/29/21 26-year-old asthmatic is coming in for shortness of breath and acute asthma exacerbation. Note that at the same time the patient is hypoxemic and she was as high as 8 L about 2 by nasal cannula and she has been weaned down to 5 L. Around few weeks back, the patient was also admitted to [facility] [place] and she was seen by the plate mill mill hand there and she was told to have a black mold in her lung. Nevertheless, I'm not sure of the diagnosis and whether she was diagnosed having ABPA or not is not clear. This history further investigated. Clinically she is doing better. She is less bronchospastic and wheezy. She remains on a combination of DuoNeb nebulized treatments around the clock, she is on per formance of Pulmicort nebulized treatments twice a day. She remains on IV Solu- Medrol. She is a dose of 60 mg IV Solu Medrol every 6 hours patient remains on doxycycline. Based on all the history reported, I performed an HRCT of the chest and a chest showed hazy groundglass pulmonary infiltrates throughout the lung gonzalez bilaterally. This raises the concern for an underlying COVID-19 infection despite her negativity towards COVID-19 infection by PCR at the time of of admission. We'll check antibodies. Objective - Vital Signs Vital signs: Vital Signs Temp 98.4 F 05/29/21 13:34 Pulse 88 05/29/21 13:34 Resp 18 05/29/21 13:34 BP 134/77 05/29/21 13:34 Pulse Ox 93 L 05/29/21 13:34 Intake & Output 05/28/21 05/29/21 05/29/21 18:59 06:59 18:59 Other: Voiding Method Bedside Commode # Voids 2 3 - Exam No acute distress, oriented 3. No audible wheezing, use of accessory muscles, or conversational dyspnea. The patient appears much more stable than yesterday. HEENT examination is grossly unremarkable. Neck supple. Full range of motion. No adenopathy thyromegaly or neck vein distention. Cardiovascular examination reveals regular rhythm rate. S1-S2 normal. No S3 or S4. No discernible murmur noted. Heart sounds are distant. Heart rate 100 bpm. Lungs reveal mild expiratory wheezes. Breath sounds equal bilaterally. No rhonchi. No crackles. There is prolongation on forced maneuver. Exam today is much improved compared to yesterday. Abdomen soft bowel sounds are heard. No masses or tenderness. Extremities are intact. No cyanosis clubbing or edema. Skin is without rash or lesion. Neurologic examination is brief but nonfocal. - Labs CBC & Chem 7: 05/26/21 12:43 05/26/21 12:43 Labs: Microbiology - Last 24 Hours (Table) 05/26/21 12:44 Blood Culture - Preliminary Blood No Growth after 48 hours Assessment and Plan Plan: 1 severe persistent bronchial asthma with ongoing exacerbation 2 diffuse bilateral ground glass pulmonary infiltrates him a could be related to previous COVID-19 infection. Other possibilities could be atypical infections. Could be also related to other possibilities such as using follicular pneumonias/hypersensitivity pneumonias. ALLERGIC bronchopulmonary asper gillosis felt to be less likely.Bronchoscopy was [facility] at [facility] and to be very interesting to obtain the results of these testing and the bronchioloalveolar lavage that was done on at a time of the bronchoscopy. 3 acute hypoxic respiratory failure secondary to above currently on 5 L by nasal cannula 4 obesity with a BMI of 37.8 Plan Check total IgE level check on complement fixation Abs for Aspergillus fumigatus check COVID-19 antibodies Continue same treatment will continue to follow. Attempt to wean down the FiO2 as tolerated. Obtain if possible the results of the bronchoscopy and the lavage from [facility].
[2021-05-29] MEDS: MELATONIN 3 MG TABLET PO SCH (21:49)
[2021-05-30] MEDS: methylPREDNISolone SOD SUCCI 125 MG/2 ML VIAL IV SCH ×3 (05:44→16:33)
[2021-05-30] MEDS: FORMOTEROL FUMARATE 20 MCG/2 ML NEBU INHALATION SCH ×2 (08:26→20:09)
[2021-05-30] MEDS: IPRATROPIUM-ALBUTEROL 3 ML NEB INHALATION SCH ×4 (08:26→20:01)
[2021-05-30] MEDS: BUDESONIDE 1 MG/2 ML NEBU INHALATION SCH ×2 (08:26→20:00)
[2021-05-30] MEDS: DOXYCYCLINE 100 MG CAP PO SCH ×2 (10:48→20:58)
[2021-05-30] MEDS: NYSTATIN 100,000 UNIT/ML SUSP 500,000 UNIT/5 ML CUP PO SCH ×4 (10:48→20:58)
[2021-05-30] MEDS: ENOXAPARIN 40 MG/0.4 ML SYRINGE SQ SCH (10:48)
--- NOTE | 2021-05-30 12:08 | P.PN ---
Subjective Progress Note Date: 05/30/21 26-year-old asthmatic is coming in for shortness of breath and acute asthma exacerbation. Note that at the same time the patient is hypoxemic and she was as high as 8 L about 2 by nasal cannula and she has been weaned down to 5 L. Around few weeks back, the patient was also admitted to [facility] [place] and she was seen by the electrician supervisor there and she was told to have a black mold in her lung. Nevertheless, I'm not sure of the diagnosis and whether she was diagnosed having ABPA or not is not clear. This history further investigated. Clinically she is doing better. She is less bronchospastic and wheezy. She remains on a combination of DuoNeb nebulized treatments around the clock, she is on per formance of Pulmicort nebulized treatments twice a day. She remains on IV Solu- Medrol. She is a dose of 60 mg IV Solu Medrol every 6 hours patient remains on doxycycline. Based on all the history reported, I performed an HRCT of the chest and a chest showed hazy groundglass pulmonary infiltrates throughout the lung gonzalez bilaterally. This raises the concern for an underlying COVID-19 infection despite her negativity towards COVID-19 infection by PCR at the time of of admission. We'll check antibodies. Ablation, this young lady is related to emotional and she wants to go home. She misses her children. She is doing slightly better. She is less short of breath. She is on 2 L of oxygen by nasal cannula with pulse ox of 94%. We will also check her pulse ox on room air. She is still on bronchodilators and she is also on IV Solu-Medrol. CAT scan of the chest showed diffuse bilateral groundglass pulmonary infiltrates. The serum IgE level came back above 1700 consistent with ALLERGIC bronchial asthma. Possibility of ALLERGIC bronchopulmonary aspergillosis felt to be less likely. Objective - Vital Signs Vital signs: Vital Signs Temp 98.4 F 05/30/21 07:20 Pulse 90 05/30/21 11:46 Resp 18 05/30/21 11:46 BP 144/79 05/30/21 07:20 Pulse Ox 94 L 05/30/21 09:28 Intake & Output 05/29/21 05/30/21 05/30/21 18:59 06:59 18:59 Other: Voiding Method Bedside Commode Toilet Bedside Commode # Voids 3 2 - Exam No acute distress, oriented 3. No audible wheezing, use of accessory muscles, or conversational dyspnea. The patient appears much more stable than yesterday. HEENT examination is grossly unremarkable. Neck supple. Full range of motion. No adenopathy thyromegaly or neck vein distention. Cardiovascular examination reveals regular rhythm rate. S1-S2 normal. No S3 or S4. No discernible murmur noted. Heart sounds are distant. Heart rate 100 bpm. Lungs reveal mild expiratory wheezes. Breath sounds equal bilaterally. No rhonchi. No crackles. There is prolongation on forced maneuver. Exam today is much improved compared to yesterday. Abdomen soft bowel sounds are heard. No masses or tenderness. Extremities are intact. No cyanosis clubbing or edema. Skin is without rash or lesion. Neurologic examination is brief but nonfocal. - Labs CBC & Chem 7: 05/26/21 12:43 05/26/21 12:43 Labs: Abnormal Lab Results - Last 24 Hours (Table) 05/29/21 Range/Units 12:28 IgE 1748.00 H (0.00-114.00) IU/mL Microbiology - Last 24 Hours (Table) 05/26/21 12:44 Blood Culture - Preliminary Blood No Growth after 72 hours Assessment and Plan Plan: 1 severe persistent bronchial asthma with ongoing exacerbation improving, and the patient is suspected to have ALLERGIC asthma knowing that her serum IgE level is quite elevated above 1700. ABPA is felt to be less likely. The CAT scan of the chest is not consistent with ABPA. There is no bronchiectasis. CF fixation for Aspergillus fumigatus antibodies are still pending. The patient is feeling better for now. 2 diffuse bilateral ground glass pulmonary infiltrates him a could be related to previous COVID-19 infection. Other possibilities could be atypical infections. Could be also related to other possibilities such as using follicular pneumonias/hypersensitivity pneumonias. ALLERGIC bronchopulmonary aspergillosis felt to be less likely.Bronchoscopy was done at [facility] and to be very interesting to obtain the results of these testing and the bronchioloalveolar lavage that was done on at a time of the bronchoscopy. 3 acute hypoxic respiratory failure secondary to above currently on 2 L by nasal cannula 4 obesity with a BMI of 37.8 Plan Check total IgE level, quite elevated levels and the patient would be a good candidate for outpatient anti-IgE treatment with Xolair check on complement fixation Abs for Aspergillus fumigatus , results are still pending check COVID-19 antibodies, results are still pending Wean down FiO2 and check the patient's pulse ox on room air oxygen Obtain if possible the results of the bronchoscopy and the lavage from [facility]. Possibly home today to be followed up on outpatient basis. will give her a combination of Symbicort, Singulair and Spiriva on outpatient basis in addition to a prednisone burst taper and this will be a slow taper and further modification of her asthma treatment will be done outpatient basis.
[2021-05-30] MEDS: MELATONIN 3 MG TABLET PO SCH (20:58)
[2021-05-31 06:26] VITALS: RESP 18
[2021-05-31] MEDS: methylPREDNISolone SOD SUCCI 125 MG/2 ML VIAL IV SCH ×4 (07:11→17:27)
[2021-05-31 07:50] VITALS: TEMP 98.2
[2021-05-31] MEDS: BUDESONIDE 1 MG/2 ML NEBU INHALATION SCH (08:28)
[2021-05-31] MEDS: IPRATROPIUM-ALBUTEROL 3 ML NEB INHALATION SCH ×3 (08:29→16:00)
[2021-05-31] MEDS: FORMOTEROL FUMARATE 20 MCG/2 ML NEBU INHALATION SCH (08:29)
[2021-05-31] MEDS: ENOXAPARIN 40 MG/0.4 ML SYRINGE SQ SCH (09:26)
[2021-05-31] MEDS: NYSTATIN 100,000 UNIT/ML SUSP 500,000 UNIT/5 ML CUP PO SCH ×3 (09:26→17:27)
[2021-05-31] MEDS: DOXYCYCLINE 100 MG CAP PO SCH (09:27)
[2021-05-31 13:31] VITALS: BP 131/77
--- NOTE | 2021-05-31 14:54 | P.PN ---
Subjective Progress Note Date: 05/31/21 26-year-old asthmatic is coming in for shortness of breath and acute asthma exacerbation. Note that at the same time the patient is hypoxemic and she was as high as 8 L about 2 by nasal cannula and she has been weaned down to 5 L. Around few weeks back, the patient was also admitted to [facility] and she was seen by the car porter there and she was told to have a black mold in her lung. Nevertheless, I'm not sure of the diagnosis and whether she was diagnosed having ABPA or not is not clear. This history further investigated. Clinically she is doing better. She is less bronchospastic and wheezy. She remains on a combination of DuoNeb nebulized treatments around the clock, she is on per formance of Pulmicort nebulized treatments twice a day. She remains on IV Solu- Medrol. She is a dose of 60 mg IV Solu Medrol every 6 hours patient remains on doxycycline. Based on all the history reported, I performed an HRCT of the chest and a chest showed hazy groundglass pulmonary infiltrates throughout the lung gonzalez bilaterally. This raises the concern for an underlying COVID-19 infection despite her negativity towards COVID-19 infection by PCR at the time of of admission. We'll check antibodies. Ablation, this young lady is related to emotional and she wants to go home. She misses her children. She is doing slightly better. She is less short of breath. She is on 2 L of oxygen by nasal cannula with pulse ox of 94%. We will also check her pulse ox on room air. She is still on bronchodilators and she is also on IV Solu-Medrol. CAT scan of the chest showed diffuse bilateral groundglass pulmonary infiltrates. The serum IgE level came back above 1700 consistent with ALLERGIC bronchial asthma. Possibility of ALLERGIC bronchopulmonary aspergillosis felt to be less likely. 05/31/2021, the patient is eager to go home. She is still missing her children. Her oxygenation is improved. She is less short of breath compared to yesterday. The antibiotics hours COVID-19 and Aspergillus has not been resulted yet. Nevertheless this can be followed up on outpatient basis. I think overall, her condition is stable and the patient can be discharged home today on a prednisone burst taper in combination with Spiriva, Symbicort and Singulair. She has home nebulizer. Objective - Vital Signs Vital signs: Vital Signs Temp 98.2 F 05/31/21 13:30 Pulse 68 05/31/21 13:30 Resp 18 05/31/21 13:30 BP 131/77 05/31/21 13:30 Pulse Ox 91 L 05/31/21 13:30 Intake & Output 05/30/21 05/31/21 05/31/21 18:59 06:59 18:59 Other: Voiding Method Toilet Bedside Commode # Voids 4 3 - Exam No acute distress, oriented 3. No audible wheezing, use of accessory muscles, or conversational dyspnea. The patient appears much more stable than yesterday. HEENT examination is grossly unremarkable. Neck supple. Full range of motion. No adenopathy thyromegaly or neck vein distention. Cardiovascular examination reveals regular rhythm rate. S1-S2 normal. No S3 or S4. No discernible murmur noted. Heart sounds are distant. Heart rate 100 bpm. Lungs reveal mild expiratory wheezes. Breath sounds equal bilaterally. No rhonchi. No crackles. There is prolongation on forced maneuver. Exam today is much improved compared to yesterday. Abdomen soft bowel sounds are heard. No masses or tenderness. Extremities are intact. No cyanosis clubbing or edema. Skin is without rash or lesion. Neurologic examination is brief but nonfocal. - Labs CBC & Chem 7: 05/26/21 12:43 05/26/21 12:43 Labs: Microbiology - Last 24 Hours (Table) 05/26/21 12:44 Blood Culture - Preliminary Blood No Growth after 96 hours Assessment and Plan Plan: 1 severe persistent bronchial asthma with ongoing exacerbation improving, and the patient is suspected to have ALLERGIC asthma knowing that her serum IgE level is quite elevated above 1700. ABPA is felt to be less likely. The CAT scan of the chest is not consistent with ABPA. There is no bronchiectasis. CF fixation for Aspergillus fumigatus antibodies are still pending. The patient is feeling better for now. 2 diffuse bilateral ground glass pulmonary infiltrates him a could be related to previous COVID-19 infection. Other possibilities could be atypical infections. Could be also related to other possibilities such as using follicular pneumonias/hypersensitivity pneumonias. ALLERGIC bronchopulmonary aspergillosis felt to be less likely.Bronchoscopy was done at [facility] and to be very interesting to obtain the results of these testing and the bro nchioloalveolar lavage that was done on at a time of the bronchoscopy. 3 acute hypoxic respiratory failure secondary to above currently on 2 L by nasal cannula 4 obesity with a BMI of 37.8 Plan Check total IgE level, quite elevated levels and the patient would be a good candidate for outpatient anti-IgE treatment with Xolair check on complement fixation Abs for Aspergillus fumigatus , results are still pending check COVID-19 antibodies, results are still pending This patient has improved and there is no need for home oxygen. The patient can be discharged home on a prednisone burst taper in addition to the above-mentioned medications of Singulair Symbicort and sleeve a an albuterol nebulized she was on as-needed basis up to 4 times a day. I will be glad to follow-up on an outpatient basis home today to be followed up on outpatient basis. will give her a combination of Symbicort, Singulair and Spiriva on outpatient basis in addition to a prednisone burst taper and this will be a slow taper and further modification of her asthma treatment will be done outpatient basis. I was able also to review the records from the other hospital. Her Mycoplasma IgM was slightly elevated. COVID-19 testing was negative. Serum IgE level was elevated. Serum IgE antibodies for Aspergillus were negative. Fungicell titers was also negative.
[2021-05-31 16:04] VITALS: PULSE 90
[2021-05-31 19:41] LABS: African American GFR (CKD) 140.6 (60.0-200.0); Albumin 3.8 g/dL (3.80-4.90); Albumin/Globulin Ratio 1.46 (1.60-3.17); Anion Gap 10.3 mmol/L (4.00-12.00); BUN/Creat Ratio 25.71 Ratio (12.00-20.00); Calcium 8.5 mg/dL (8.7-10.3); Carbon Dioxide 23.7 mmol/L (21.6-31.8); Globulin 2.6 g/dL (1.6-3.3); Non-African American GFR(CKD) 121.3 (60.0-200.0); Potassium 4.1 mmol/L (3.5-5.5); Total Bilirubin 0.5 mg/dL (0.2-1.2); Total Protein 6.4 g/dL (6.2-8.2)
== END 2021-05-31 18:55 | disposition home or self-care (01) | DRG 202 ==
LOC: EC 12:28 → 4SSUR 16:37
PROVIDERS: ADMIT Internal Medicine; ATTEND Internal Medicine
DX: J45.51 Severe persistent asthma with (acute) exacerbation (principal); J96.01 Acute respiratory failure with hypoxia; Z20.822 Contact with and (suspected) exposure to COVID-19; T38.0X5A Adverse effect of glucocorticoids and synthetic analogues, initial encounter; D72.829 Elevated white blood cell count, unspecified; F32.9 Major depressive disorder, single episode, unspecified; J40 Bronchitis, not specified as acute or chronic; Z79.51 Long term (current) use of inhaled steroids; Z82.49 Family history of ischemic heart disease and other diseases of the circulatory system; Z82.5 Family history of asthma and other chronic lower respiratory diseases; Z87.891 Personal history of nicotine dependence; Z88.0 Allergy status to penicillin; Z79.899 Other long term (current) drug therapy; Z81.8 Family history of other mental and behavioral disorders
CPT/HCPCS: 36415; 36600; 71045; 71250; 80053; 82785; 82805; 83605; 83735; 84484; 84703; 85025; 85379; 85610; 85730; 86606; 86769; 87040; 87635; 93005; 94640; 94660; 94760; 96365; 96375; 96376; 99285